=== PATIENT | female | born 2000 | race Caucasian/White ===

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

== ENCOUNTER 2020-07-30 15:39 | Emergency (ER) | payer OTHER ==
[~2020-07-30] VITALS: Ht 167.6 cm; Wt 104.5 kg
[2020-07-30 16:16] VITALS: BP 118/76
== END 2020-07-30 20:29 | disposition left against medical advice (07) ==
LOC: ER 15:39
DX: R56.9 Unspecified convulsions (principal); Z53.21 Procedure and treatment not carried out due to patient leaving prior to being seen by health care provider

== ENCOUNTER 2021-03-28 16:43 | Emergency (ER) | payer BC ==
[~2021-03-28] VITALS: Ht 167.6 cm; Wt 108.4 kg
[2021-03-28 17:04] VITALS: BP 131/89
[2021-03-28 17:38] LABS: CLARITY,URINE CLOUDY (Clear); COLOR,URINE YELLOW (Yellow); UA COLLECTION TYPE NON-SPECIFIED
[2021-03-28 17:39] LABS: URINE HCG NEGATIVE (NEG)
[2021-03-28 17:43] LABS: GLUCOSE, URINE NEGATIVE (Neg); KETONES,URINE TRACE mg/dl (Neg); LEUKOCYTE ESTERASE ,URINE NEGATIVE (Neg); NITRITES, URINE NEGATIVE (Neg); OCCULT BLOOD,URINE NEGATIVE (Neg); PROTEIN,URINE NEGATIVE (Neg); UROBILINOGEN,URINE 0.2 E.U/dL (0.2-1.0)
[2021-03-28 17:47] LABS: MUCUS STRANDS MANY /LPF (Neg); SQUAMOUS EPITHELIAL CELL,UR MANY /LPF (FEW); TRANSITIONAL EPI CELLS,URINE FEW /HPF
[2021-03-28 17:48] LABS: BACTERIA,URINE 4+ /HPF (Neg); RBC,URINE NONE SEEN /HPF (0-2); WBC,URINE 0-4 /HPF (0-4)
[2021-03-28 17:58] LABS: URINE AMPHETAMINE SCREEN NEGATIVE (Neg); URINE BARBITUATE SCREEN NEGATIVE (Neg); URINE BENZODIAZEPINES SCREEN NEGATIVE (Neg); URINE CANNABINOID SCREEN NEGATIVE (Neg); URINE COCAINE SCREEN NEGATIVE (Neg); URINE METHADONE SCREEN NEGATIVE (Neg); URINE OPIATE SCREEN NEGATIVE (Neg); URINE PHENCYCLIDINE SCREEN NEGATIVE (Neg)
[2021-03-28 18:08] LABS: ALANINE AMINOTRANSFERASE 91 U/L (12-78); ALBUMIN 3.8 G/DL (3.4-5.0); ALBUMIN/GLOBULIN RATIO 1.1 (1.1-1.5); ALKALINE PHOSPHATASE 59 IU/L (46-116); ANION GAP 12 (8-16); ASPARTATE AMINO TRANSFERASE 37 U/L (10-37); BILIRUBIN,TOTAL 0.4 MG/DL (0.1-1.0); BLOOD UREA NITROGEN 7 MG/DL (7-18); BUN/CREATININE RATIO 7.4 (6.6-38.0); CALCIUM 8.7 MG/DL (8.5-10.1); CHLORIDE 108 MMOL/L (99-107); CREATININE 0.94 MG/DL (0.40-0.90); GLUCOSE 141 MG/DL (70-104); POTASSIUM 4.1 MMOL/L (3.5-5.1); SODIUM 142 MMOL/L (135-145); TOTAL CARBON DIOXIDE 22.3 MMOL/L (24-32); TOTAL PROTEIN 7.3 G/DL (6.4-8.2); eGFR 75 ML/MIN
[2021-03-28 18:50] LABS: BASOPHILS # (AUTO) 0.1 X10'3 (0-0.2); BASOPHILS % (AUTO) 0.6 % (0-1); EOSINOPHILS # (AUTO) 0.2 X10'3 (0-0.9); EOSINOPHILS % (AUTO) 1.5 % (0-6); HEMATOCRIT 39.3 % (35.0-45.0); HEMOGLOBIN 13.4 g/dl (12.0-16.0); LYMPHOCYTES # (AUTO) 2.5 X10'3 (1.1-4.8); LYMPHOCYTES % (AUTO) 23.5 % (21-51); MEAN CORPUSCULAR HEMOGLOBIN 30.9 PG (27.0-31.0); MEAN CORPUSCULAR HGB CONC 34.1 g/dL (33.0-36.5); MEAN CORPUSCULAR VOLUME 90.6 FL (78-98); MEAN PLATELET VOLUME 8.2 FL (7.4-10.4); MONOCYTES # (AUTO) 0.5 X10'3 (0-0.9); MONOCYTES % (AUTO) 4.7 % (2-12); NEUTROPHILS # (AUTO) 7.4 X10'3 (1.8-7.7); NEUTROPHILS % (AUTO) 69.7 % (42-75); PLATELET COUNT 334 X10'3 (140-440); RED BLOOD COUNT 4.34 X10'6 (4.20-5.60); RED CELL DISTRIBUTION WIDTH 12.9 % (11.5-14.5); WHITE BLOOD COUNT 10.6 X10'3 (4.5-11.0)
== END 2021-03-28 20:16 | disposition home or self-care (01) ==
LOC: ER 16:45
DX: F32.9 Major depressive disorder, single episode, unspecified (principal); T50.905A Adverse effect of unspecified drugs, medicaments and biological substances, initial encounter; R53.1 Weakness; G43.909 Migraine, unspecified, not intractable, without status migrainosus; Z86.69 Personal history of other diseases of the nervous system and sense organs; Z90.89 Acquired absence of other organs; Y92.89 Other specified places as the place of occurrence of the external cause
CPT/HCPCS: 36415; 80053; 80305; 81001; 81025; 85025; 99283

== ENCOUNTER 2022-07-25 12:09 | Emergency (ER) | payer SELFPAY ==
[~2022-07-25] VITALS: Ht 170.2 cm; Wt 111.4 kg
[2022-07-25 12:31] VITALS: BP 131/79
== END 2022-07-25 18:04 | disposition left against medical advice (07) ==
LOC: ER 12:09
DX: R10.9 Unspecified abdominal pain (principal); Z53.21 Procedure and treatment not carried out due to patient leaving prior to being seen by health care provider

== ENCOUNTER 2022-07-27 08:48 | Emergency (ER) | payer MEDICAID ==
[~2022-07-27] VITALS: Ht 170.2 cm; Wt 111.0 kg
[2022-07-27] MEDS ORDERED: ondansetron/PF 4mg/2ml inj IV ONE (09:35)
[2022-07-27] MEDS ORDERED: normal saline 1000ML IV soln IVB ONE (09:35)
[2022-07-27] MEDS ORDERED: ketorolac trometh inj. 60 MG/2 ML VIAL IM ONE (09:35)
[2022-07-27 09:51] LABS: CLARITY,URINE CLEAR (Clear); COLOR,URINE STRAW (Yellow); GLUCOSE, URINE NEGATIVE (Neg); KETONES,URINE NEGATIVE (Neg); LEUKOCYTE ESTERASE ,URINE NEGATIVE (Neg); NITRITES, URINE NEGATIVE (Neg); OCCULT BLOOD,URINE SMALL (Neg); PROTEIN,URINE NEGATIVE (Neg); UROBILINOGEN,URINE 0.2 E.U/dL (0.2-1.0)
[2022-07-27 09:58] LABS: UA COLLECTION TYPE NON-SPECIFIED
[2022-07-27] MEDS ORDERED: ondansetron 4mg rapidly disintigrating tab PO ONE (10:00)
[2022-07-27 10:05] LABS: BACTERIA,URINE FEW /HPF (Neg); MUCUS STRANDS NONE SEEN /LPF (Neg); RBC,URINE 0-2 /HPF (0-2); SQUAMOUS EPITHELIAL CELL,UR FEW /LPF (FEW); WBC,URINE 0-4 /HPF (0-4)
[2022-07-27 10:41] LABS: URINE HCG NEGATIVE (NEG)
[2022-07-27 11:09] LABS: BASOPHILS # (AUTO) 0.1 X10'3 (0-0.2); BASOPHILS % (AUTO) 0.7 % (0-1); EOSINOPHILS # (AUTO) 0.2 X10'3 (0-0.9); EOSINOPHILS % (AUTO) 2.6 % (0-6); HEMATOCRIT 39.1 % (35.0-45.0); HEMOGLOBIN 13.1 g/dl (12.0-16.0); LYMPHOCYTES # (AUTO) 2.5 X10'3 (1.1-4.8); LYMPHOCYTES % (AUTO) 27.8 % (21-51); MEAN CORPUSCULAR HGB CONC 33.5 g/dL (33.0-36.5); MEAN CORPUSCULAR VOLUME 89.4 FL (78-98); MEAN PLATELET VOLUME 8.7 FL (7.4-10.4); MONOCYTES # (AUTO) 0.4 X10'3 (0-0.9); MONOCYTES % (AUTO) 4.7 % (2-12); NEUTROPHILS # (AUTO) 5.8 X10'3 (1.8-7.7); NEUTROPHILS % (AUTO) 64.2 % (42-75); PLATELET COUNT 325 X10'3 (140-440); RED BLOOD COUNT 4.37 X10'6 (4.20-5.60); RED CELL DISTRIBUTION WIDTH 13.3 % (11.5-14.5); WHITE BLOOD COUNT 9.1 X10'3 (4.5-11.0)
[2022-07-27 11:17] LABS: ALANINE AMINOTRANSFERASE 138 U/L (12-78); ALBUMIN 3.8 G/DL (3.4-5.0); ALKALINE PHOSPHATASE 53 IU/L (46-116); ANION GAP 11 (8-16); ASPARTATE AMINO TRANSFERASE 74 U/L (10-37); BILIRUBIN,TOTAL 0.3 MG/DL (0.1-1.0); BLOOD UREA NITROGEN 9 MG/DL (7-18); BUN/CREATININE RATIO 9.2 (6.6-38.0); CALCIUM 8.9 MG/DL (8.5-10.1); CHLORIDE 104 MMOL/L (99-107); CREATININE 0.98 MG/DL (0.40-0.90); GLUCOSE 96 MG/DL (70-104); LIPASE 69 U/L (73-393); SODIUM 141 MMOL/L (135-145); TOTAL PROTEIN 7.8 G/DL (6.4-8.2); eGFR 70 ML/MIN
[2022-07-27 12:25] VITALS: BP 116/77
== END 2022-07-27 12:45 | disposition home or self-care (01) ==
LOC: ER 08:48
DX: N92.0 Excessive and frequent menstruation with regular cycle (principal); N94.6 Dysmenorrhea, unspecified; G43.909 Migraine, unspecified, not intractable, without status migrainosus; F32.A Depression, unspecified; Z79.899 Other long term (current) drug therapy
CPT/HCPCS: 36415; 76830; 76856; 80053; 81001; 81025; 83690; 85025; 93976; 96361; 96372; 96374; 99285; J1885; J2405; J7030

== ENCOUNTER 2023-11-15 10:05 | Outpatient (CLI) | payer MEDICAID | END 2023-11-15 23:59 | disposition home or self-care (01) | LOC: RAD 10:05 | PROVIDERS: ATTEND Registered Nurse | DX: Z30.431 Encounter for routine checking of intrauterine contraceptive device (principal); N93.0 Postcoital and contact bleeding; N94.10 Unspecified dyspareunia; Z87.42 Personal history of other diseases of the female genital tract | CPT/HCPCS: 76830; 76856; 93976 ==

== ENCOUNTER 2024-06-27 14:00 | Emergency (ER) | payer MEDICAID ==
[~2024-06-27] VITALS: Ht 169.5 cm; Wt 115.1 kg
[2024-06-27 14:07] VITALS: BP 118/78; PULSE 88; RESP 16; TEMP 98.1; O2SAT 96
[2024-06-27] MEDS ORDERED: MEDR10TA10 PO (14:50)
[2024-06-27] MEDS: medroxyprogesterone acet. 2.5mg tablet PO ONE (14:54)
== END 2024-06-27 15:17 | disposition home or self-care (01) ==
LOC: ER 14:01
DX: N93.9 Abnormal uterine and vaginal bleeding, unspecified (principal); N92.0 Excessive and frequent menstruation with regular cycle; E28.2 Polycystic ovarian syndrome; G43.909 Migraine, unspecified, not intractable, without status migrainosus; F32.A Depression, unspecified; Z90.89 Acquired absence of other organs
CPT/HCPCS: 99283

== ENCOUNTER 2025-01-28 19:54 | Emergency (ER) | payer MEDICAID ==
[~2025-01-28] VITALS: Ht 167.6 cm; Wt 92.8 kg
[~2025-01-28 19:54] MED LIST: MEDR10TA10 PO
[2025-01-28 20:01] VITALS: BP 126/85; PULSE 98; RESP 15; TEMP 98.6; O2SAT 98
--- NOTE | 2025-01-28 20:07 | Physician Documentation ---
History of Present Illness ~ Chief Complaint: Urinary Symptoms Stated Complaint: BLOOD IN URINE Time Seen by MD: 20:06 Primary Medical Doctor: [facility] HPI 24-year-old female presents with the emergency department department after experiencing a proximally 24 hours of CVA tenderness accompanied by urinary symptoms, hematuria She reports that she may or may not have had a fevers does not have a thermometer home but feels like she has been slightly flushed. He has denies any nausea vomiting or diarrhea at this time. Does report generally feeling unwell or not as good over the last couple of days. Patient reports th at she has PCOS has irregular periods. Patient reports taking Tylenol prior to arrival with the emergency department's as her pain is currently under control and tolerable. Medication Reconciliation Allergies: Coded Allergies: No Known Allergies (Unverified , 01/28/25) Scheduled Cephalexin*Monohydrate* (Keflex*), 1 CAP PO QID Medroxyprogesterone Acet (Medroxyprogesterone Acetate), 1 TAB PO DAILY Past Medical History Past Medical History: Migraine, Seizures, *RENAL/*, Depression Past Surgical History: tonsillectomy Alcohol Use: None Drug Use: none Lives with: Mother Lives In: Home Review of Systems All Other Systems at this time: Reviewed and Negative ROS As stated above in the HPI, otherwise all systems are reviewed and negative. Physical Exam Vital Signs: Temperature: 98.6, Source: Temporal, Heart Rate: 98, Respiratory Rate: 15, BP: 126/85, Pulse Oximetry: 98, Weight: 92.850 Physical Exam VITALS: Reviewed and as above. GENERAL: Alert, no apparent distress. HEENT: Normocephalic, atraumatic, PERRL, EOMI, dry mucosa, no erythema RESPIRATORY: Lungs clear, normal breath sounds, no respiratory distress. CHEST: No accessory muscle use, no retractions CV: Regular rate, rhythm, no edema, no murmur, No: JVD GI: Soft, non-tender, bowels sounds present, no rebound, guarding, or rigidity BACK: Positive CVA tenderness MUSCULOSKELETAL No deformities, no edema SKIN: Warm and dry, no rash NEURO: Oriented x4, No motor or sensory deficit PSYCH: Normal mood and affect, no agitation Progress Results/Orders Results/Orders Orders - YEN BHATT DREDGE PIPE OPERATOR Ct Abdomen Pelvis (01/28/25 20:43) Completed Orders - NOVAYEN LEE DREDGE PIPE OPERATOR Cbc/Diff (01/28/25 20:35) CMP (01/28/25 20:35) Hcg, Ur Ql (01/28/25 20:37) Ct Abdomen Pelvis (01/28/25 20:43) Cefazolin Im Kit (Er Only) (Ancef Im Kit (01/28/25 22:05) Ceftriaxone Im Kit W/Lidocaine (Rocephin (01/28/25 22:10) Medications Received in ER Medications (Trade) Dose Ordered Sig/Radha Route PRN Reason Start Time Stop Time Status Last Admin Dose Admin (Rocephin 1GM IM kit (w/lidocaine diluent)) 1,000 mg ONCE ONCE IM 01/28/25 22:10 01/28/25 22:11 DC 01/28/25 22:26 1,000 MG Vital Signs 01/28/25 20:01 Temp 98.6 Pulse 98 Resp 15 B/P (MAP) 126/85 Pulse Ox 98 Laboratory Tests Test 01/28/25 20:04 01/28/25 20:42 Urine Specimen Description Cln catch midstream Urine Color Yellow Urine Clarity Slightly cloudy Urine pH 7.0 Urine Specific [place] 1.020 Urine Protein Trace Urine Glucose (UA) Negative Urine Ketones Negative Urine Occult Blood Large H Urine Nitrite Negative Urine Bilirubin Negative Urine Urobilinogen 1.0 Urine Leukocyte Esterase Negative Urine RBC 20-50 Urine WBC 0-4 Urine Squamous Epithelial Cells Many Urine Bacteria 1+ Urine Culture Indicated Not ind Volume Urine Centrifuged 10 ml Urine HCG, Qualitative Negative Urine Comment White Blood Count 11.8 H Red Blood Count 4.28 Hemoglobin 12.8 Hematocrit 37.1 Mean Corpuscular Volume 86.8 Mean Corpuscular Hemoglobin 30.0 Mean Corpuscular Hemoglobin Concent 34.5 Red Cell Distribution Width 13.3 Platelet Count 328 Mean Platelet Volume 8.0 Neutrophils (%) (Auto) 65.6 Lymphocytes (%) (Auto) 28.3 Monocytes (%) (Auto) 3.5 Eosinophils (%) (Auto) 1.8 Basophils (%) (Auto) 0.8 Neutrophils # (Auto) 7.7 Lymphocytes # (Auto) 3.3 Monocytes # (Auto) 0.4 Eosinophils # (Auto) 0.2 Basophils # (Auto) 0.1 CBC Comment Sodium Level 137 Potassium Level 3.9 Chloride Level 102 Carbon Dioxide Level 27.5 Anion Gap 8 Blood Urea Nitrogen 14 Creatinine 0.80 Estimated GFR/1.73 m2 87 BUN/Creatinine Ratio 17.5 Glucose Level 99 Calcium Level 8.8 Total Bilirubin 0.7 Aspartate Amino Transf (AST/SGOT) 46 H Alanine Aminotransferase (ALT/SGPT) 110 H Alkaline Phosphatase 58 Total Protein 7.9 Albumin 4.1 Globulin 3.8 Albumin/Globulin Ratio 1.1 Chemistry Comments Medical Decision Making Findings Patient presenting with flank/back pain and fever. Differential included UTI, pyelonephritis, diverticulitis, nephrolithiasis, appendicitis, cholangitis_. Also considered but less likely given history and physical exam included constipation, bowel perforation, gastritis, pancreatitis, mesenteric ischemia. Patient febrile and given tylenol and normal saline bolus. Given ceftriaxone and prescribed cefdinir/keflex x7 days, Follow up with PMD this week. Return precautions given. Departure Disposition: HOME / SELF CARE / HOMELESS Impression: Primary Impression: Hematuria Additional Impression: Acute pyelonephritis Condition: Stable Discharge Instructions: Pyelonephritis, Adult Referrals: NO PRIMARY CARE PROVIDER (PCP) Prescriptions Cephalexin*Monohydrate* (Keflex*) 500 Mg Capsule 1 CAP PO QID for UTI/Pyelonephritis for 7 Days, #40 CAP Prov: YEN BHATT 01/28/25 Education Educated: Patient Educated regarding: diagnosis, treatment, need for follow up Signature Scribe Signature: . Attestation: Scribed for Yen Bhatt by KIMI Olvera . 01/28/25 23:05 YEN BHATT Jan 28, 2025 20:07
[2025-01-28 20:12] LABS: LEUKOCYTE ESTERASE ,URINE NEGATIVE (Neg); NITRITES, URINE NEGATIVE (Neg); OCCULT BLOOD,URINE LARGE (Neg); UA COLLECTION TYPE CLN CATCH MIDSTREAM
[2025-01-28 20:19] LABS: SQUAMOUS EPITHELIAL CELL,UR MANY /LPF (FEW)
[2025-01-28 20:47] LABS: MEAN PLATELET VOLUME 8.0 FL (7.4-10.4); RED CELL DISTRIBUTION WIDTH 13.3 % (11.5-14.5)
[2025-01-28 20:47] LABS: URINE HCG NEGATIVE (NEG)
[2025-01-28 21:02] LABS: CREATININE 0.80 MG/DL (0.40-0.90); TOTAL CARBON DIOXIDE 27.5 MMOL/L (24-32); eCRCL 101 ML/MIN; eGFR 87 ML/MIN
--- NOTE | 2025-01-28 21:44 | RADIOLOGY REPORT ---
Exam: CT CT ABDOMEN PELVIS History: CVA tenderness, hematuria Comparison Study: None TECHNIQUE: Multidetector CT of the abdomen and pelvis was performed from lung bases to pubic symphysi s. Imaging was performed without IV contrast. Axial, coronal, and sagittal multiplanar reformats were obtained from the axial data set by the technologist. RADIATION DOSE: DLP 1920.76 mGy.cm; CTDI vol 35.66 mGy. Findings: Lungs: The lung bases are clear. Heart: No cardiomegaly or pericardial effusion. Liver: The liver measures 23.3 cm in craniocaudal dimension. Fatty infiltration of the liver. Gallbladder: Unremarkable. Spleen: Unremarkable Pancreas: Unremarkable Adrenals: Unremarkable Kidneys: Unremarkable GI tract: Unremarkable : The urinary bladder is decompressed. Vasculature: Unremarkable Lymphadenopathy: Absent Peritoneum: No ascites Musculoskeletal: Unremarkable Soft tissues: Unremarkable Impression: 1. No acute abdominopelvic abnormalities. 2. No hydroureteronephrosis. 3. Urinary bladder is decompressed. 4. Hepatomegaly with hepatic steatosis.
[2025-01-28] MEDS ORDERED: CEFAZOLIN 2 GM injection IM ONE (22:00)
[2025-01-28] MEDS: ceFAZolin 1gm IM kit IM ONE (22:25)
[2025-01-28] MEDS: CefTRIAXone 1000mg IM Kit (w/lidocaine diluent) IM ONE (22:26)
[2025-01-28] MEDS ORDERED: CEPH-585 PO (23:03)
== END 2025-01-28 23:13 | disposition home or self-care (01) ==
LOC: ER 19:55
DX: N10 Acute pyelonephritis (principal); R31.9 Hematuria, unspecified; F32.A Depression, unspecified; G43.909 Migraine, unspecified, not intractable, without status migrainosus; Z79.899 Other long term (current) drug therapy
CPT/HCPCS: 36415; 74176; 80053; 81001; 81025; 85025; 96372; 99285; J0696

== ENCOUNTER 2025-04-03 17:13 | Emergency (ER) | payer MEDICAID ==
[~2025-04-03] VITALS: Ht 167.6 cm; Wt 118.0 kg
[2025-04-03 17:28] VITALS: BP 124/81; PULSE 104; O2SAT 96
--- NOTE | 2025-04-03 17:36 | Physician Documentation ---
History of Present Illness ~ Chief Complaint: Urinary Symptoms Stated Complaint: FLANK PAIN Time Seen by MD: 18:21 Primary Medical Doctor: [facility] HPI MSE patient presents for feeling of sling pain and bladder pain. States one month ago she had a kidney infection. Has completed antibiotics. Denies fevers or chills. Was asked, but otherwise denies review of systems. Patient re-examined: She complains of pain in the left abdomen that radiates to her back. No N/V/D. No upper abd pain. Medication Reconciliation Allergies: Coded Allergies: No Known Allergies (Unverified , 04/03/25) Scheduled Medroxyprogesterone Acet (Medroxyprogesterone Acetate), 1 TAB PO DAILY Past Medical History Past Medical History: Migraine, Seizures, *RENAL/*, Depression Past Surgical History: tonsillectomy Alcohol Use: None Drug Use: none Lives with: Mother Lives In: Home Review of Systems ROS Review of systems negative except documented in HPI. Physical Exam Vital Signs: Temperature: 98.2, Source: Oral, Heart Rate: 104, Respiratory Rate: 18, BP: 124/81, Pulse Oximetry: 96, Weight: 118.000 Pulse Oximetry Reflects: adequate oxygenation Physical Exam Medical screening exam completed in triage: Patient is awake, alert, oriented. In no obvious distress. No CVA tenderness bilaterally. Pain with palpation to the lower abdomen. Lungs clear to auscultation bilaterally. Vital signs stable. Awaiting room assignment. General: Awake, alert, oriented. No apparent distress Respiratory: Lungs are clear to auscultation bilaterally. No respiratory distress. Chest: Normal shape and size. No accessory muscle use. Cardiovascular: Regular rate and rhythm. S1-S2. No murmur, gallop, rub. Gastrointestinal: Abdomen is soft. Pain with palpation over the left lower quadrant, left upper quadrant. Bowel sounds positive. Abdomen nondistended. Extremities: No lower extremity edema, cyanosis or clubbing. Neurologic: Alert and oriented x4. Nonfocal Psychiatric: Normal mood and affect. Skin: Normal color. Warm and dry. Progress Progress Note 1856: Re-eval: Patient c/o abd pain. Pain with palpation. Labs ordered. 2127: patient states pain has improved after medication. Labs, CT results reviewed. All questions answered. Results/Orders Results/Orders Orders - SUNDAY CUNNINGHAM BARREL ENDSHAKE ADJUSTER Saline Lock (04/03/25 18:55) Ct Abdomen Pelvis (04/03/25 20:20) Completed Orders - SUNDAY CUNNINGHAM BARREL ENDSHAKE ADJUSTER Cbc/Diff (04/03/25 18:55) Normal Saline 1000ml (0.9% Sodium Chlori (04/03/25 18:55) BMP (04/03/25 18:55) Ct Abdomen Pelvis (04/03/25 20:20) Morphine 4mg/Ml Inj. (Morphine Inj.) (04/03/25 20:40) Vital Signs 04/03/25 04/03/25 04/03/25 17:28 20:49 21:47 Temp 98.2 98.2 Pulse 104 Resp 18 18 B/P (MAP) 124/81 Pulse Ox 96 Laboratory Tests Test 04/03/25 17:45 04/03/25 19:31 Urine Specimen Description Cln catch midstream Urine Color Yellow Urine Clarity Slightly cloudy Urine pH 6.0 Urine Specific [place] 1.020 Urine Protein Negative Urine Glucose (UA) Negative Urine Ketones Negative Urine Occult Blood Negative Urine Nitrite Negative Urine Bilirubin Negative Urine Urobilinogen 0.2 Urine Leukocyte Esterase Negative Urine RBC None seen Urine WBC None seen Urine Squamous Epithelial Cells Many Urine Bacteria 3+ Urine Mucus Few Urine Culture Indicated Not ind Volume Urine Centrifuged 10 ml Urine HCG, Qualitative Negative Urine Comment White Blood Count 14.2 H Red Blood Count 4.61 Hemoglobin 13.9 Hematocrit 40.5 Mean Corpuscular Volume 87.8 Mean Corpuscular Hemoglobin 30.1 Mean Corpuscular Hemoglobin Concent 34.3 Red Cell Distribution Width 13.7 Platelet Count 368 Mean Platelet Volume 8.3 Neutrophils (%) (Auto) 66.0 Lymphocytes (%) (Auto) 27.4 Monocytes (%) (Auto) 3.4 Eosinophils (%) (Auto) 2.4 Basophils (%) (Auto) 0.8 Neutrophils # (Auto) 9.4 H Lymphocytes # (Auto) 3.9 Monocytes # (Auto) 0.5 Eosinophils # (Auto) 0.3 Basophils # (Auto) 0.1 CBC Comment Sodium Level 139 Potassium Level 3.8 Chloride Level 103 Carbon Dioxide Level 26.5 Anion Gap 10 Blood Urea Nitrogen 10 Creatinine 0.72 Estimated GFR/1.73 m2 > 90 BUN/Creatinine Ratio 13.9 Glucose Level 128 H Calcium Level 9.0 Albumin 4.0 Chemistry Comments EKG/XRAY/CT/US/VASC/MRI CT : Interpreted By: radiologist CT: abdomen/pelvis With Contrast?: No Impression [facility] [place], [place] - [id number] CAT SCAN Patient: HORACIO MEDEIROS Medical Record: [id number] [facility] : 2000, Age: 24 Sex: Female Location: ER Patient Status: [facility] ER Service Date/Time: 04/03/252019 Ordering Physician: SUNDAY CUNNINGHAM BARREL ENDSHAKE ADJUSTER Exam: CT ABDOMEN PELVIS Exam: CT CT ABDOMEN PELVIS History: lower quadrant abd pain Comparison Study: CT CT ABDOMEN PELVIS on DOS: 01/28/25, US ULTRASOUND PELVIS W/ORWO DPLX on DOS: 11/15/23, ULTRASOUND PELVIS on DOS: 07/27/22 Technique: Multidetector spiral CT of the abdomen was performed from lung bases to pubic symphysis. Imaging was performed without IV contrast. Axial, coronal and sagittal multiplanar reformats were obtained from the axial data set by the technologist. Radiation dose : 1. Abdomen/Pelvis: CTDIvol 36.88 mGy, DLP 1905.44 mGy*cm. Findings: Evaluation of solid organs is limited due to lack of intravenous contrast use. Lung Bases: No acute or significant lung base finding. Normal heart size. No pleural or pericardial effusion. Liver: The Liver is enlarged with severe diffuse hepatosteatosis. No focal lesions. Gallbladder and biliary Tree: Unremarkable Spleen: Unremarkable Pancreas: The pancreas is grossly normal in appearance. Adrenal Glands: Unremarkable Kidneys: Kidneys are grossly normal without calculi or hydronephrosis. Bladder: Grossly unremarkable for degree of distention. Bowel: The stomach is grossly normal in appearance. Small bowel and colon are normal in caliber and distribution. The appendix is not visualized; however, no secondary findings of acute appendicitis identified. Ascites: Absent Lymphadenopathy: No mesenteric, retroperitoneal or periportal lymphadenopathy. Abdominal wall and Mesentery: Unremarkable. Vasculature: The visualized abdominal aorta is normal in size and caliber. Evaluation of abdominal and pelvic vessels is limited due to lack of intravenous contrast. Pelvic Organs: Unremarkable Musculoskeletal: No aggressive focal bony lesions, acute fractures or dislocation. IMPRESSION: 1. No acute abdominal or pelvic findings. Radiation optimization: All CT scans at this facility use at least one of these dose optimization techniques: automated exposure control mA and/or kV adjustment per patient size (includes targeted exams where dose is matched to clinical indication) or iterative reconstruction. Electronically Signed by:MARCOS IBRCH MD Date & Time: 04/03/252110 Dictated by: MARCOS BIRCH MD Dictation date and time: 04/03/252110 Primary Care Provider: NO PRIMARY CARE PROVIDER cc: SUNDAY CUNNINGHAM BARREL ENDSHAKE ADJUSTER ~ Medical Decision Making Findings Patient presented with left lower quadrant abdominal pain. She was concerned f or pyelonephritis given her recent history. Her turned study was without infection. Given her left lower quadrant abdominal pain labs were completed. She has no white blood cell count indicative of an infection. Kidney function was normal. No electrolyte imbalances. Bowel sounds active. Low clinical suspicion for bowel obstruction. CT was performed without evidence acute di verticulitis, diverticulosis. Concern for appendicitis. Appendix not well visualized on CT scan. Low clinical suspicion. Warning signs and symptoms were reviewed in detail with patient as well as her visitor. All questions were answered. At this time, I do not suspect an acute intra-abdominal emergency. Patient was educated that is symptoms worsen to return to the emergency department. No . Low clinical suspicions in an [place] . Low clinical suspicion for PID. Or other pelvic emergencies. Encouraged to follow up with primary care provider. Urinary Diff Dx:Considerations: Include: Appendicitis, Bowel obstruction, Pyelonephritis Genital Diff Dx:Considerations: Include: -Complete, - Incomplete, -Inevitable, Ablortion-Missed, -Threatened, Abruptio placentae, Bartholin abscess, Bartholin cyst, Dsymenorrhea, Ectopic , Hormonal, Menorrhagia, Menometrorrhagia, Menstrual bleeding, PID, , UTI, Vaginitis Departure Time of Disposition: 21:28 Disposition: 01 HOME / SELF CARE / HOMELESS Impression: Primary Impression: Abdominal pain Qualified Codes: R10.32 - Left lower quadrant pain Condition: Stable Discharge Instructions: Abdominal Pain, Adult, [id number] Additional Instructions: CT scan did not show any evidence of an acute abdominal emergency at this time. If her pain worsens, you fevers or chills please return. Recommend that you follow up with your primary care provider if you do not have a primary care provider recommend that you call [facility]. I will provide you a list of other providers you may call. Recommend that you drink plenty of fluids. Rest. Please return for any new or worsening symptoms. Departure Forms: Excuse form Work or School Excused From: Work Excuse beginning now through the following date: Apr 03, 2025 May Return but still avoid physical Activity from now until: Apr 05, 2025 May Return to full physical activity as of: Apr 05, 2025 Referrals: NO PRIMARY CARE PROVIDER (PCP) Education Educated: Patient Educated regarding: diagnosis, treatment, need for follow up Signature Scribe Signature: No scribe Attestation: The note accurately reflects work and decisions made by me.Sunday Pizarro NP 04/04/25 10:27 This note was created with the assistance of voice recognition software whereby errors in grammar, syntax, and/or spelling may have occurred despite active proofreading efforts by the author. Please do not hesitate to contact the provider for clarification or for questions regarding the content of this document. SUNDAY CUNNINGHAM NP Apr 03, 2025 17:36
[2025-04-03 17:49] LABS: URINE HCG NEGATIVE (NEG)
[2025-04-03 17:50] LABS: LEUKOCYTE ESTERASE ,URINE NEGATIVE (Neg); NITRITES, URINE NEGATIVE (Neg); OCCULT BLOOD,URINE NEGATIVE (Neg)
[2025-04-03 17:52] LABS: UA COLLECTION TYPE CLN CATCH MIDSTREAM
[2025-04-03 17:54] LABS: MUCUS STRANDS FEW /LPF (Neg); SQUAMOUS EPITHELIAL CELL,UR MANY /LPF (FEW)
[2025-04-03 19:39] LABS: MEAN PLATELET VOLUME 8.3 FL (7.4-10.4); RED CELL DISTRIBUTION WIDTH 13.7 % (11.5-14.5)
[2025-04-03] MEDS: normal saline 1000ML IV soln IVB ONE (19:42)
[2025-04-03 19:50] LABS: CREATININE 0.72 MG/DL (0.40-0.90); TOTAL CARBON DIOXIDE 26.5 MMOL/L (24-32); eCRCL 112 ML/MIN; eGFR > 90 ML/MIN
[2025-04-03 20:49] VITALS: RESP 18
[2025-04-03] MEDS: morphine 4 MG/ML inj SYRINge IV ONE (20:49)
--- NOTE | 2025-04-03 21:14 | RADIOLOGY REPORT ---
Exam: CT CT ABDOMEN PELVIS History: lower quadrant abd pain Comparison Study: CT CT ABDOMEN PELVIS on DOS: 01/28/25, US ULTRASOUND PELVIS W/ORWO DPLX on DOS: 11/15/23, ULTRASOUND PELVIS on DOS: 07/27/22 Technique: Multidetector spiral CT of the abdomen was performed from lung bases to pubic symphysis. Imaging was performed without IV contrast. Axial, coronal and sagittal multiplanar reformats were obtained from the axial data set by the technologist. Radiation dose : 1. Abdomen/Pelvis: CTDIvol 36.88 mGy, DLP 1905.44 mGy*cm. Findings: Evaluation of solid organs is limited due to lack of intravenous contrast use. Lung Bases: No acute or significant lung base finding. Normal heart size. No pleural or pericardial effusion. Liver: The Liver is enlarged with severe diffuse hepatosteatosis. No focal lesions. Gallbladder and biliary Tree: Unremarkable Spleen: Unremarkable Pancreas: The pancreas is grossly normal in appearance. Adrenal Glands: Unremarkable Kidneys: Kidneys are grossly normal without calculi or hydronephrosis. Bladder: Grossly unremarkable for degree of distention. Bowel: The stomach is grossly normal in appearance. Small bowel and colon are normal in caliber and distribution. The appendix is not visualized; however, no secondary findings of acute appendicitis identified. Ascites: Absent Lymphadenopathy: No mesenteric, retroperitoneal or periportal lymphadenopathy. Abdominal wall and Mesentery: Unremarkable. Vasculature: The visualized abdominal aorta is normal in size and caliber. Evaluation of abdominal and pelvic vessels is limited due to lack of intravenous contrast. Pelvic Organs: Unremarkable Musculoskeletal: No aggressive focal bony lesions, acute fractures or dislocation. IMPRESSION: 1. No acute abdominal or pelvic findings. Radiation optimization: All CT scans at this facility use at least one of these dose optimization techniques: automated exposure control mA and/or kV adjustment per patient size (includes targeted exams where dose is matched to clinical indication) or iterative reconstruction.
[2025-04-03 21:47] VITALS: TEMP 98.2
== END 2025-04-03 21:47 | disposition home or self-care (01) ==
LOC: ER 17:14
DX: R10.32 Left lower quadrant pain (principal); F32.A Depression, unspecified; Z90.89 Acquired absence of other organs
CPT/HCPCS: 36415; 74176; 80048; 81001; 81025; 85025; 96361; 96374; 99285; J2270; J7030